=== PATIENT | male | born 1995 | race Caucasian/White ===

== ENCOUNTER → 2017-04-05 | Outpatient (CLI) | payer OTHER ==
[2017-04-05 16:48] VITALS: BP 117/74; PULSE 74; RESP 16; TEMP 98.1; BMI 32.3
--- NOTE | 2017-05-06 11:56 | P.PN ---
Progress Note - Text DATE OF SERVICE: 04/05/2017 CHIEF COMPLAINT: Follow up sleeve gastrectomy. HISTORY OF PRESENT ILLNESS: Alan Pop is a 21-year-old gentleman who is status post sleeve gastrectomy on 05/06/2016. He is now almost 10 to 11 months out. He reports having to go to his local emergency room several months ago for epigastric abdominal pain. Otherwise, he has been doing fairly well. At his height of 5, 11 and 3/4 inch frame, his ideal body weight is 178 pounds. His highest weight was 339 pounds. Today, he comes in weighing 236 pounds. He has maintained a 103 pound weight loss. Body mass index reduced from 46.4 down to 32.3. Percent excess weight loss is 64%. He is now only 58 pounds overweight. His total BMI point reduction is 14 points. Separately, he has poor protein intake. He reports that since he has moved and has troubles with work, he does not have a set schedule for eating. He does complain of intermittent left rib pain. Now he comes in for followup. He reports resolution of obstructives sleep apnea. His hypertension is improved. His prediabetes has also resolved. He does report intermittent gastroesophageal reflux disease. PAST MEDICAL HISTORY: 1. Obstructive sleep apnea. 2. Hypertension. 3. Asthma. 4. History of prediabetes. 5. Gastroesophageal reflux disease. PAST SURGICAL HISTORY: 1. Adenoidectomy. 2. Tonsillectomy. 3. Sleeve gastrectomy. MEDICATIONS: 1. Potassium. 2. MiraLax. 3. Multivitamin. 4. Ventolin inhaler. 5. Gas-X. ALLERGIES: 1. NEOSPORIN. 2. BACITRACIN. 3. NEOMYCIN. 4. POLYMYXIN. 5. CAT DANDER. 6. DOG DANDER. 7. MOLD. SOCIAL HISTORY: No active tobacco use. FAMILY HISTORY: Pertinent for hypercoagulable state in his mother MTHFR gene defect. Pertinent for morbid obesity. No reports of gastrointestinal malignancies or lupus or inflammatory bowel disease. REVIEW OF SYSTEMS: CONSTITUTIONAL: Total weight loss of 103 pounds. He has lost 40 pounds in the past 7 months. Percent excess weight loss 64%. Body mass index reduced from 46.4 down to 32.3. [place] body weight is 178 pounds. Highest weight of 339 pound. Present height of 5 feet 11-14. RESPIRATORY: He has resolved obstructive sleep apnea. GASTROINTESTINAL: Reports symptoms of epigastric abdominal pain including gastroesophageal reflux disease. HEENT: No troubles with vision or hearing. Denies dysphagia. ENDOCRINE: Prediabetic. No reports of thyroid disorder. CARDIOVASCULAR: History of hypertension. No congestive heart failure. No recent chest pain or heart attack. MUSCULOSKELETAL: Denies any joint arthritis. NEURO: No reports of stroke or seizure disorders. PSYCH: History of depression including anxiety. No recent suicidal ideation. HEMATOLOGIC: No reports of DVTs or pulmonary emboli. PHYSICAL EXAM: VITAL SIGNS: 98.1, 74, 16, 117/74, 5 foot 11-3-11/09 inch frame, 236 pounds, body mass index of 32.3. ABDOMEN: Soft, nontender without peritonitis. All incisions well healed without incisional hernias. GENERAL: Well-developed male in no acute distress. HEENT: No scleral icterus. Extraocular movements grossly intact. Moist buccal mucosa. NECK: Supple without lymphadenopathy. CHEST: Nonlabored respirations. Equal bilateral excursions. CARDIOVASCULAR: Regular rate and rhythm. MUSCULOSKELETAL: No clubbing, cyanosis, or edema. NEURO: No focal or lateralizing signs. Cranial nerves II through XII grossly within normal limits. PSYCH: Appropriate affect. Alert and oriented to person, place and time. Labs from outside institution was reviewed demonstrating inadequate protein intake. ASSESSMENT: 1. Morbid obesity due to excess calories. 2. Body mass index reduced from 46.4 down to 32.3. 3. Hypertension, resolved. 4. Hypertriglyceridemia. 5. Hypercholesterolemia. 6. Vitamin D severe deficiency. 7. Epigastric abdominal pain. 8. Gastroesophageal reflux disease. 9. Diaphragmatic hiatal hernia. 10. Elevated hemoglobin. 11. Family history of MTHFR hypercoagulable state. 12. Asthma. 13. Obstructive sleep apnea, resolved. 14. Osteoarthritis of the lower back and hips. 15. Metabolic syndrome, resolved. 16. Depression without acute psychosis. 17. Status post sleeve gastrectomy. PLAN: 1. He reports and confirms low protein intake which is essential to maintain weight loss. 2. Recommend a bariatric metabolic panel. 3. Also, recommend possible endoscopy for evaluation for gross esophagitis as well as his gastroesophageal reflux disease. 4. I have also recommended follow up at his anniversary, otherwise sooner if he should have any further problems.
== END | disposition home or self-care (01) ==
LOC: BARWHC3 15:03
PROVIDERS: ATTEND Surgery Plastic and Reconstructive Surgery
DX: E66.01 Morbid (severe) obesity due to excess calories (principal); E89.1 Postprocedural hypoinsulinemia; D50.8 Other iron deficiency anemias; K90.89 Other intestinal malabsorption; E44.0 Moderate protein-calorie malnutrition; E55.9 Vitamin D deficiency, unspecified; N19 Unspecified kidney failure; K50.90 Crohn's disease, unspecified, without complications; E21.1 Secondary hyperparathyroidism, not elsewhere classified; K76.9 Liver disease, unspecified; K21.9 Gastro-esophageal reflux disease without esophagitis; F32.9 Major depressive disorder, single episode, unspecified; D58.2 Other hemoglobinopathies; J45.909 Unspecified asthma, uncomplicated; M47.816 Spondylosis without myelopathy or radiculopathy, lumbar region; M16.0 Bilateral primary osteoarthritis of hip; K44.9 Diaphragmatic hernia without obstruction or gangrene; E78.00 Pure hypercholesterolemia, unspecified; E78.1 Pure hyperglyceridemia; Z98.84 Bariatric surgery status; Z88.1 Allergy status to other antibiotic agents; Z68.32 Body mass index [BMI] 32.0-32.9, adult; Z79.899 Other long term (current) drug therapy
CPT/HCPCS: 97803; 99211

== ENCOUNTER → 2018-01-17 | Outpatient (CLI) | payer OTHER ==
[2018-01-17 15:45] VITALS: BP 133/92; PULSE 55; RESP 16; TEMP 97.6; BMI 34.5
--- NOTE | 2018-03-02 10:46 | P.PN ---
Subjective Progress Note Date: 01/17/18 DATE OF SERVICE: 01/17/2018 CHIEF COMPLAINT: Follow up sleeve gastrectomy. HISTORY OF PRESENT ILLNESS: Alan Pop is a 22-year-old gentleman who is status post sleeve gastrectomy on 05/06/2016. He has over 1-1/2 years out from his procedure. He comes in with troubles with fluctuation of his weight. He also reports constipation as well as epigastric abdominal pain. He is upset that his weight has plateaued in fact increased. He reports potential right upper quadrant abdominal pain as well as hair loss. He has not been following his recommend intake of protein over 80 g daily. At his height of 5, 11 and 3/4 inch frame, his ideal body weight is 178 pounds. His highest weight was 339 pounds. Today, he comes in weighing 249 pounds. He has maintained a 90 pound weight loss. Body mass index reduced from 46.4 down to 34.0.. Percent excess weight loss is 56 %. He is now 71 pounds overweight. Since his last visit 10 months ago, he has gained 13 pounds. PAST MEDICAL HISTORY: 1. Obstructive sleep apnea. 2. Hypertension. 3. Asthma. 4. History of prediabetes. 5. Gastroesophageal reflux disease. 6. Morbid obesity, BMI 46.4 initial PAST SURGICAL HISTORY: 1. Adenoidectomy. 2. Tonsillectomy. 3. Sleeve gastrectomy. MEDICATIONS: 1. Potassium. 2. MiraLax. 3. Multivitamin. 4. Ventolin inhaler. 5. Gas-X. ALLERGIES: 1. NEOSPORIN. 2. BACITRACIN. 3. NEOMYCIN. 4. POLYMYXIN. 5. CAT DANDER. 6. DOG DANDER. 7. MOLD. SOCIAL HISTORY: No active tobacco use. FAMILY HISTORY: Pertinent for hypercoagulable state in his mother MTHFR gene defect. Pertinent for morbid obesity. No reports of gastrointestinal malignancies or lupus or inflammatory bowel disease. REVIEW OF SYSTEMS: CONSTITUTIONAL: At his height of 5, 11 and 3/4 inch frame, his ideal body weight is 178 pounds. His highest weight was 339 pounds. Today, he comes in weighing 249 pounds. He has maintained a 90 pound weight loss. Body mass index reduced from 46.4 down to 34.0.. Percent excess weight loss is 56 %. He is now 71 pounds overweight. Since his last visit 10 months ago, he has gained 13 pounds. RESPIRATORY: He has resolved obstructive sleep apnea. No pneumonia GASTROINTESTINAL: Reports symptoms of epigastric abdominal pain including gastroesophageal reflux disease. HEENT: No troubles with vision or hearing. Denies dysphagia. ENDOCRINE: Prediabetic, now resolved. No reports of thyroid disorder. CARDIOVASCULAR: History of hypertension, resolved. No congestive heart failure. No recent chest pain or heart attack. Hypercholesterolemia resolved. MUSCULOSKELETAL: Denies any joint arthritis. NEURO: No reports of stroke or seizure disorders. PSYCH: History of depression including anxiety. No recent suicidal ideation. HEMATOLOGIC: No reports of DVTs or pulmonary emboli. SKIN: No rash. No skin cancer. PHYSICAL EXAM: VITAL SIGNS: 5 foot 11-3-1/4 inch frame, 249 pounds, body mass index of 34.5. Vital Signs Temp 97.6 F 01/17/18 16:00 Pulse 55 L 01/17/18 16:00 Resp 16 01/17/18 16:00 BP 133/92 01/17/18 16:00 Pulse Ox ABDOMEN: Soft, nontender without peritonitis. All incisions well healed without incisional hernias. Tender along epigastrium and right upper quadrant. GENERAL: Well-developed male in no acute distress. HEENT: No scleral icterus. Extraocular movements grossly intact. Moist buccal mucosa. NECK: Supple without lymphadenopathy. CHEST: Nonlabored respirations. Equal bilateral excursions. CARDIOVASCULAR: Regular rate and rhythm. MUSCULOSKELETAL: No clubbing, cyanosis, or edema. NEURO: No focal or lateralizing signs. Cranial nerves II through XII grossly within normal limits. PSYCH: Appropriate affect. Alert and oriented to person, place and time. SKIN: Well perfused. Good skin turgor. Labs from outside institution was reviewed demonstrating inadequate protein intake. ASSESSMENT: 1. Morbid obesity due to excess calories. 2. Body mass index reduced from 46.4 down to 34.5 3. Vitamin D severe deficiency. 4. Epigastric abdominal pain. 5. Gastroesophageal reflux disease. 6. Status post sleeve gastrectomy. 7. Dietary surveillance and counseling. 8. Cholecystitis PLAN: 1. Recommend bariatric metabolic panel 2. He has history of loss which is consistent with inadequate protein intake. 3. Recommend evaluation with bariatric dietitian 4. He has epigastric including right upper quadrant abdominal pain highly suspicious for cholecystitis. Recommend HIDA scan and ultrasound. 5. He reports esophageal reflux disease. Recommend upper endoscopy. 6. Also recommend for esophagram to evaluate contour of sleeve. Objective - Vital Signs Vital signs: Vital Signs Temp 97.6 F 01/17/18 15:35 Pulse 55 L 01/17/18 15:35 Resp 16 01/17/18 15:35 BP 133/92 01/17/18 15:35 Pulse Ox Intake & Output 01/16/18 01/17/18 01/17/18 18:59 06:59 18:59 Weight 113.086 kg
== END | disposition home or self-care (01) ==
LOC: BARWHC3 15:06
PROVIDERS: ATTEND Surgery Plastic and Reconstructive Surgery
DX: Z09 Encounter for follow-up examination after completed treatment for conditions other than malignant neoplasm (principal); E66.01 Morbid (severe) obesity due to excess calories; E55.9 Vitamin D deficiency, unspecified; K21.9 Gastro-esophageal reflux disease without esophagitis; R10.13 Epigastric pain; K81.9 Cholecystitis, unspecified; Z71.3 Dietary counseling and surveillance; Z98.84 Bariatric surgery status; Z68.34 Body mass index [BMI] 34.0-34.9, adult; Z88.1 Allergy status to other antibiotic agents; Z91.09 Other allergy status, other than to drugs and biological substances; Z79.899 Other long term (current) drug therapy
CPT/HCPCS: 99211

== ENCOUNTER → 2018-03-16 | Outpatient (CLI) | payer OTHER ==
--- NOTE | 2018-03-16 07:27 | US ---
EXAMINATION TYPE: US gallbladder DATE OF EXAM: 03/16/2018 COMPARISON: NONE CLINICAL HISTORY: R10.11 RUQ abdominal pain. EXAM MEASUREMENTS: Liver Length: 11.0 cm Gallbladder Wall: 0.3 cm CBD: 0.4 cm Right Kidney: 12.3 x 4.6 x 7.3 cm Pancreas: not visualized due to midline bowel gas Liver: wnl Gallbladder: multiple mobile stones Evidence for sonographic Casper's sign: Yes CBD: wnl Right Kidney: No hydronephrosis or masses seen IMPRESSION: 1. Uncomplicated cholelithiasis.
== END | disposition home or self-care (01) ==
LOC: RADUSWWP 06:41
PROVIDERS: ATTEND Surgery Plastic and Reconstructive Surgery
DX: K80.20 Calculus of gallbladder without cholecystitis without obstruction (principal)
CPT/HCPCS: 76705